=== PATIENT | female | born 2000 | race Caucasian/White ===

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

== ENCOUNTER 2021-01-12 11:41 | Emergency (ER) | payer BC, SELFPAY ==
[2021-01-12 11:48] VITALS: BP 149/87; PULSE 76; RESP 16; TEMP 36.9; O2SAT 99
[2021-01-12] MEDS: ONDANSETRON HCL ODT 4 MG TABLET PO (12:39)
--- NOTE | 2021-01-14 11:35 | ED.GENADULT ---
HPI - General Adult General Chief complaint: Nausea/Vomiting/Diarrhea Stated complaint: abd pain Source: patient Mode of arrival: ambulatory Limitations: no limitations History of Present Illness HPI narrative: Patient is a 21-year-old obese female who presents to the [facility] via POV for evaluation of for a year and a half. Patient states her stomachache has been consistent the past 2 weeks prompting today's visit. Additionally, she reports intermittent nausea, bloating, and diarrhea. Diarrhea is watery and brown in color. She states she has had 3 episodes of diarrhea since onset. She believes she may have celiac disease prompting today's visit. Food worsen symptoms. Nothing improves symptoms stating, it just goes away with time then comes back Related Data Allergies Allergy/AdvReac Type Severity Reaction Status Date / Time No Known Allergies Allergy Verified 01/12/21 12:14 Review of Systems Review of Systems: Denies past abdominal medical history. Pertinent negatives fever, chills, sweats, malaise, poor p.o. intake, change in appetite, recent weight loss, lymphadenopathy, headache, sore throat, dizziness, LOC, urinary sxs, back/flank pain, extremity paresthesias, blood in stool, vomiting, constipation, belching, bloating, dry mouth, heartburn, jaundice, vomiting blood, and testicular pain. PMFSH Past Medical History Medical History Asthma Surgical History Surgical History History of tonsillectomy Social History Social History Smoking status: Never smoker Alcohol intake: never Gender identity (if verbalized by the patient): Female Comments I have reviewed and agree with the patient's past medical, surgical, social, and family hx as documented by the RN. There is no relevant family history pertinent to the presenting complaint. Exam Narrative: GENERAL: Well-appearing, well-nourished, and in no acute distress. HEAD: Normocephalic, atraumatic. NECK: Supple. No lymphadenopathy or nuchal rigidity. CHEST: Lung sounds are clear to auscultation in bilateral lung browning. No respiratory distress. HEART: Regular rate and rhythm. No murmur, gallop, or rub heard. ABDOMEN: Mild epigastric tenderness appreciated upon palpation. Soft, non-distended, normal active bowel sounds in all quadrants. No guarding. No rebound tenderness. No pulsatile or palpable abdominal mass(es). No CVAT : Bladder non-distended, non-tender EXTREMITIES: Normal range of motion. No edema. SKIN: Warm, dry, no rash. No skin color changes. Excellent turgor. NEURO: No focal deficits. Alert and oriented x3. SPECIAL OBSERVATIONS: Smiling. Laughing. Course Vital Signs Vital signs: Vital Signs Temperature 98.4 F 01/12/21 11:48 Pulse Rate 76 01/12/21 11:48 Respiratory Rate 16 01/12/21 11:48 Blood Pressure 149/87 H 01/12/21 11:48 Pulse Oximetry 99 01/12/21 11:48 Temperature 98.4 F 01/12/21 11:48 Pulse Rate 76 01/12/21 11:48 Respiratory Rate 16 01/12/21 11:48 Blood Pressure 149/87 H 01/12/21 11:48 Pulse Oximetry 99 01/12/21 11:48 Due to an elevated blood pressure, I had a detailed discussion with the patient and/or guardian regarding the need for follow-up with their primary care provider within the next 3-4 days. Patient verbalized understanding and agreed. Medical Decision Making Differential Diagnosis Differential Diagnosis: Crohn's disease, celiac disease, IBS, ulcerative colitis, gastroenteritis, appendicitis, cholecystitis Medical Records Medical records reviewed: Yes I reviewed the external patient's medical records. Vital Signs Vital Signs: Vital Signs Temperature 98.4 F 01/12/21 11:48 Pulse Rate 76 01/12/21 11:48 Respiratory Rate 16 01/12/21 11:48 Blood Pressure 149/87 H 01/12/21 11:48 Pulse Oximetry
== END 2021-01-12 13:19 | disposition home or self-care (01) ==
PROVIDERS: Emergency Provider Nurse Practitioner Family
DX: R19.7 Diarrhea, unspecified (principal); R11.0 Nausea; J45.909 Unspecified asthma, uncomplicated
CPT/HCPCS: 99213; A9270; G0463

== ENCOUNTER 2021-08-08 20:39 | Emergency (ER) | payer BC, SELFPAY ==
[2021-08-08 20:48] VITALS: BP 133/78; PULSE 92; RESP 18; TEMP 36.8; O2SAT 100
--- NOTE | 2021-08-08 23:27 | ED.GENADULT ---
HPI - General Adult General Chief complaint: Back Pain/Injury Stated complaint: tailbone cyst Time Seen by Provider: 08/08/21 22:43 Source: patient and RN notes reviewed Mode of arrival: ambulatory Limitations: no limitations History of Present Illness HPI narrative: This is a 21 year old female who presents for evaluation of tailbone pain. Patient noticed a painful area of swelling to her tailbone on Sunday. She denies drainage, fever, nausea or vomiting. She reports she had a cyst on her abdomen before but denies history of tailbone cyst. Related Data Allergies Allergy/AdvReac Type Severity Reaction Status Date / Time No Known Allergies Allergy Verified 08/08/21 21:37 Review of Systems Review of Systems: All systems reviewed & are unremarkable except as noted in HPI and below Constitutional: Constitutional: Denies fatigue and Denies fever(s) ENT: Denies vertigo Cardiovascular: Cardiovascular: Denies chest pain Respiratory: Respiratory: Denies cough and Denies dyspnea Gastrointestinal: Gastrointestinal: Denies abdominal pain, Denies nausea and Denies vomiting PMFSH Past Medical History Medical History Asthma Surgical History Surgical History History of tonsillectomy Social History Social History Smoking status: Never smoker Alcohol intake: never Gender identity (if verbalized by the patient): Female Exam Const: General: alert Orientation/consciousness: patient oriented x3 Eyes: EOM: EOMs intact bilaterally Resp: Effort & Inspection: normal respiratory effort and no retractions GI: GI Palp: Yes Soft to palpation, No Tenderness to palpation present (GI) and No Guarding due to palpation present (GI) Auscultation: normal bowel sounds Skin: Other: 2 cm area of redness, induration, swelling and tenderness at crease of buttock Neuro: General: patient oriented x3, moves all extremities and CN's II-XI intact bilaterally Extrem: General: normal to inspection Course Vital Signs Vital signs: Vital Signs Temperature 98.3 F 08/08/21 20:48 Pulse Rate 92 08/08/21 20:48 Respiratory Rate 18 08/08/21 20:48 Blood Pressure 133/78 08/08/21 20:48 Pulse Oximetry 100 08/08/21 20:48 Temperature 98.3 F 08/08/21 20:48 Pulse Rate 77 08/09/21 00:17 Respiratory Rate 18 08/09/21 00:17 Blood Pressure 115/68 08/09/21 00:17 Pulse Oximetry 98 08/09/21 00:17 Procedures Abscess I/D pilonidal cyst: Date of Incision: 08/08/21 Time of Incision: 23:57 Local Anesthetic: lidocaine 1% and with epi Amount of anesthesia used (mL): 1 Technique: incised with #11 blade and probed loculations Amount of fluid expressed (mL): 2 Irrigation: Yes Packing used?: iodoform I&D Results: Pus Abcess I&D Additional Comments: patient tolerated procedure Medical Decision Making Vital Signs Vital Signs: Vital Signs Temperature 98.3 F 08/08/21 20:48 Pulse Rate 92 08/08/21 20:48 Respiratory Rate 18 08/08/21 20:48 Blood Pressure 133/78 08/08/21 20:48 Pulse Oximetry 100 08/08/21 20:48 Temperature 98.3 F 08/08/21 20:48 Pulse Rate 77 08/09/21 00:17 Respiratory Rate 18 08/09/21 00:17 Blood Pressure 115/68 08/09/21 00:17 Pulse Oximetry 98 08/09/21 00:17 Discharge Plan Discharge Clinical Impression: Infected pilonidal cyst Patient Disposition: Home, Self-Care Condition: Stable Instructions: Antibiotic Form, Pilonidal Cyst (ED) Additional Instructions: Today you were found to have an infected cyst. This cyst was drained and packing left in. Packing should be removed in 3 days. Take antibiotics as prescribed. Take ibuprofen and tylenol for your pain. Prescriptions: New amoxicillin-pot clavulanate 717-177
[2021-08-09 00:17] VITALS: BP 115/68; PULSE 77; RESP 18; O2SAT 98
== END 2021-08-09 00:13 | disposition home or self-care (01) ==
PROVIDERS: Emergency Provider General Practice; PCP Nurse Practitioner Family
DX: L05.91 Pilonidal cyst without abscess (principal); L08.9 Local infection of the skin and subcutaneous tissue, unspecified; J45.909 Unspecified asthma, uncomplicated
CPT/HCPCS: 10080; 99283

== ENCOUNTER 2021-11-18 12:12 | Emergency (ER) | payer BC, SELFPAY ==
[2021-11-18 12:27] VITALS: BP 116/70; PULSE 81; RESP 16; TEMP 37.7; O2SAT 100
--- NOTE | 2021-11-18 12:49 | ED.EAR ---
HPI - Ear Problem General Chief complaint: Ear Stated complaint: EA INFECTION Time Seen by Provider: 11/18/21 12:53 History of Present Illness HPI Narrative: Vero Best is a 21 yo female who comes with ear pain worse on right than left, and cough that bothers her particularly at night. She denies fever but states the cough really disrupts her sleep Related Data Allergies Allergy/AdvReac Type Severity Reaction Status Date / Time No Known Allergies Allergy Verified 11/18/21 12:22 Review of Systems Review of Systems: CONSTITUTIONAL: Denies fever, chills, sweats. EYES: Denies visual changes, redness, discharge. ENT: Denies rhinorrhea, congestion, sore throat, right greater than left otalgia. CARDIOVASCULAR: Denies chest pain, palpitations, edema. RESPIRATORY: Denies dyspnea, wheezing, has cough GASTROINTESTINAL: Denies abdominal pain, nausea, vomiting, diarrhea. GENITOURINARY: Denies dysuria, hematuria, abnormal discharge SKIN: Denies rash or itching. NEUROLOGIC: Denies numbness, or focal weakness. PSYCHIATRIC: Denies anxiety or depression. [facility] Past Medical History Medical History Asthma Surgical History Surgical History History of tonsillectomy Social History Social History Smoking status: Never smoker Alcohol intake: never Gender identity (if verbalized by the patient): Female Comments At time of signature, I agree with nursing past medical, surgical, social and family history. There is no relevant family history pertinent to the presenting complaint. Exam Narrative: GENERAL: This is a well-nourished, well-developed patient, in mild distress. HEAD: normocephalic, atraumatic. EYES: Sclera clear/white. Vision is grossly intact. EARS: External ears normal, auditory canals erythema and right mild drainage, TMs normal without perforation. Hearing grossly intact. NOSE: External nose normal without nasal discharge, nares without redness, no rhinorrhea. THROAT: Mucous membranes moist, posterior pharynx mild erythema NECK: Neck supple, non-tender CARDIOVASCULAR: Regular rate and rhythm without murmurs, gallops, or rubs. RESPIRATORY: Clear to auscultation. Breath sounds equal bilaterally. No wheezes, rales, or rhonchi. GASTROINTESTINAL: Not done SKIN: warm, intact with no suspicious lesions or rash, good texture and turgor. NEURO: awake, alert, and oriented to person, place and time. There were no obvious focal neurologic abnormalities. Steady gait EXTREMITIES: Normal range of motion. BACK: Nontender without deformity Course Course Emergency Course: Patient here with cough and right ear pain states has a lot of drainage at night that causes coughing Amoxicillin given for bilateral ear infection, Tesmaribell Perlpankaj for cough discussed use of Flonase nasal spray Level of Care: Express Care Visit Vital Signs Vital signs: Vital Signs Temperature 99.8 F H 11/18/21 12:27 Pulse Rate 81 11/18/21 12:27 Respiratory Rate 16 11/18/21 12:27 Blood Pressure 116/70 11/18/21 12:27 Pulse Oximetry 100 11/18/21 12:27 Oxygen Delivery Room Air 11/18/21 12:27 Temperature 99.8 F H 11/18/21 12:27 Pulse Rate 81 11/18/21 12:27 Respiratory Rate 16 11/18/21 12:27 Blood Pressure 116/70 11/18/21 12:27 Pulse Oximetry 100 11/18/21 12:27 Oxygen Delivery Room Air 11/18/21 12:27 Medical Decision Making Differential Diagnosis Differential Diagnosis: Otitis media versus otitis externa versus eustachian tube dysfunction versus viral illness Vital Signs Vital Signs: Vital Signs Temperature 99.8 F H 11/18/21 12:27 Pulse Rate 81 11/18/21 12:27 Respiratory Rate 16 11/18/21 12:27 Blood Pressure 116/70 11/18/21 12:27 Pulse Oximetry 100 11/18/21 12:27 Oxygen Delivery Room Air 11/18/21 12:27 Temperatu
== END 2021-11-18 13:00 | disposition home or self-care (01) ==
PROVIDERS: Emergency Provider Nurse Practitioner; PCP Nurse Practitioner Family
DX: H66.93 Otitis media, unspecified, bilateral (principal); J45.909 Unspecified asthma, uncomplicated
CPT/HCPCS: 99213; G0463

== ENCOUNTER 2022-01-11 15:44 | Emergency (ER) | payer BC, SELFPAY ==
[2022-01-11 15:53] VITALS: BP 132/73; PULSE 89; RESP 16; TEMP 37; O2SAT 100
--- NOTE | 2022-01-11 17:42 | ED.EAR ---
HPI - Ear Problem General Chief complaint: Ear Stated complaint: ear Time Seen by Provider: 01/11/22 17:41 Source: patient Mode of arrival: ambulatory Limitations: no limitations History of Present Illness HPI Narrative: This is a 22 year old female that presents to the ER for right ear pain. Ongoing over the last couple of days. Reports she was started on Augmentin by Urgent care 2 days ago with little relief. Reports continued pain. Denies fever. Related Data Allergies Allergy/AdvReac Type Severity Reaction Status Date / Time No Known Allergies Allergy Verified 11/18/21 12:22 Review of Systems Review of Systems: CONSTITUTIONAL: Denies fever ENT: Reports otalgia. All systems reviewed & are unremarkable except as noted in HPI and below PMFSH Past Medical History Medical History Asthma Surgical History Surgical History History of tonsillectomy Social History Social History Smoking status: Never smoker Alcohol intake: never Gender identity (if verbalized by the patient): Female Exam Narrative: GENERAL: Well-appearing, well-nourished, and in no acute distress. HEAD: Normocephalic, atraumatic. EYES: EOMI. ENT: Left TM pearly nolen non-bulging. Right external auditory canal with mild irritation. Pus noted just anterior to the right TM, likely acute otitis media with perforation NECK: Supple. No adenopathy or masses. CHEST: Clear to auscultation. No respiratory distress. No wheezes rales or rhonchi HEART: Regular rate and rhythm. No murmur heard. Normal peripheral pulses. EXTREMITIES: Normal range of motion. No edema. SKIN: Warm, dry, no rash. NEURO: No focal deficits. Alert and oriented x3. PSYCH: Normal mood and affect Course Vital Signs Vital signs: Vital Signs Temperature 98.6 F 01/11/22 15:53 Pulse Rate 89 01/11/22 15:53 Respiratory Rate 16 01/11/22 15:53 Blood Pressure 132/73 01/11/22 15:53 Pulse Oximetry 100 01/11/22 15:53 Oxygen Delivery Room Air 01/11/22 15:53 Temperature 98.6 F 01/11/22 15:53 Pulse Rate 89 01/11/22 15:53 Respiratory Rate 16 01/11/22 15:53 Blood Pressure 132/73 01/11/22 15:53 Pulse Oximetry 100 01/11/22 15:53 Oxygen Delivery Room Air 01/11/22 15:53 Medical Decision Making MDM Narrative Medical decision making narrative: Patient presents to the emergency department for continued right ear pain. Started on oral antibiotics by urgent care 2 days ago without relief. Patient is afebrile and nontoxic-appearing. Patient's exam is consistent with acute otitis media, likely with a perforation of the TM. Oral antibiotics will be changed. She will be given follow-up with ENT. She was given warnings to return to the ER Vital Signs Vital Signs: Vital Signs Temperature 98.6 F 01/11/22 15:53 Pulse Rate 89 01/11/22 15:53 Respiratory Rate 16 01/11/22 15:53 Blood Pressure 132/73 01/11/22 15:53 Pulse Oximetry 100 01/11/22 15:53 Oxygen Delivery Room Air 01/11/22 15:53 Temperature 98.6 F 01/11/22 15:53 Pulse Rate 89 01/11/22 15:53 Respiratory Rate 16 01/11/22 15:53 Blood Pressure 132/73 01/11/22 15:53 Pulse Oximetry 100 01/11/22 15:53 Oxygen Delivery Room Air 01/11/22 15:53 Critical Care Time Critical Care Time Critical Care Time: No Discharge Plan Discharge Clinical Impression: Otitis media Qualifiers: Otitis media type: suppurative Chronicity: acute Laterality: right Recurrence: recurrent Spontaneous tympanic membrane rupture: with spontaneous rupture Qualified Code(s): H66.014 - Acute suppurative otitis media with spontaneous rupture of ear drum, recurrent, right ear Patient Disposition: Home, Self-Care Condition: Stable Instructions: Antibiotic Form, Ear Infection (ED) Additional Instructions: Return
== END 2022-01-11 18:00 | disposition home or self-care (01) ==
PROVIDERS: Emergency Provider Emergency Medicine; PCP Nurse Practitioner Family
DX: H66.014 Acute suppurative otitis media with spontaneous rupture of ear drum, recurrent, right ear (principal); J45.909 Unspecified asthma, uncomplicated
CPT/HCPCS: 99283